=== PATIENT | male | born 1990 | race Hispanic/Latino ===

== ENCOUNTER 2017-07-11 01:09 | Emergency (ER) | payer SELFPAY ==
[2017-07-11 02:13] LABS: RAPID GROUP A STREP NEGATIVE (NEGATIVE)
== END 2017-07-11 02:28 | disposition home or self-care (01) ==
LOC: EDH 01:09
DX: J10.1 Influenza due to other identified influenza virus with other respiratory manifestations (principal); R50.81 Fever presenting with conditions classified elsewhere
CPT/HCPCS: 87804; 87880